=== PATIENT | female | born 1995 | race Caucasian/White ===

== ENCOUNTER 2019-11-12 14:06 | Emergency (ER) | payer SELFPAY ==
[~2019-11-12] VITALS: Ht 180.3 cm; Wt 133.0 kg
[2019-11-12 14:21] VITALS: BP 136/89
--- NOTE | 2019-11-12 15:59 | NUR ---
Patient/Caregiver given discharge instructions and they have confirmed that they understand the instructions. Patient ambulatory with steady gait. PT LEFT WITH ALL PERSONAL BELONGINGS.
== END 2019-11-12 16:03 | disposition home or self-care (01) ==
LOC: ED 15:55
DX: F41.1 Generalized anxiety disorder (principal); R06.00 Dyspnea, unspecified
CPT/HCPCS: 93005; 99283